=== PATIENT | male | born 1990 | race African-American/Black ===

== ENCOUNTER 2016-12-30 00:38 | Emergency (ER) | payer SELFPAY ==
[~2016-12-30] VITALS: Ht 180.3 cm; Wt 73.0 kg
[2016-12-30 03:40] LABS: BASOPHILS % 0.6 % (0.0-2.0); EOSINOPHILS % 1.4 % (0.0-5.0); HEMOGLOBIN. 13.1 g/dL (14.0-18.0); LYMPHOCYTES % 38.4 % (20.0-50.0); MEAN CORPUSCULAR HEMOGLOBIN 32.3 pg (28.0-32.0); MEAN CORPUSCULAR VOLUME 93.5 fL (80.0-94.0); MEAN PLATELET VOLUME 8.6 fl (7.4-10.4); MONOCYTES % 8.1 % (2.0-8.0); NEUTROPHILS % 51.5 % (40.0-76.0); PLATELET 185 x1000/uL (130-400); RED BLOOD CELL COUNT 4.06 mill/uL (4.7-6.1); RED CELL DISTRIBUTION WIDTH 13.2 % (11.6-14.6)
[2016-12-30 03:55] LABS: CARBON DIOXIDE 31 mEq/L (21-32); CHLORIDE 104 mEq/L (98-107)
[2016-12-30 10:50] VITALS: BP 117/81
[2016-12-30] MEDS ORDERED: EZ-HD(BARIUM SULFATE 135ML BTL) PO ONE (12:36)
== END 2016-12-30 13:19 | disposition home or self-care (01) ==
LOC: ER 00:38
DX: R55 Syncope and collapse (principal); J45.909 Unspecified asthma, uncomplicated; F17.290 Nicotine dependence, other tobacco product, uncomplicated
CPT/HCPCS: 36415; 74220; 80053; 85025; 99285; Z7610

== ENCOUNTER 2017-03-22 04:03 | Emergency (ER) | payer OTHER ==
[~2017-03-22] VITALS: Ht 170.2 cm; Wt 68.0 kg
[2017-03-22] MEDS ORDERED: HYDROCODONE/APAP 7.5/325MG 1 TAB TABLET PO ONE (07:45)
[2017-03-22 10:12] VITALS: BP 106/69
== END 2017-03-22 10:32 | disposition home or self-care (01) ==
LOC: ER 04:03
DX: S90.31XA Contusion of right foot, initial encounter (principal); S80.12XA Contusion of left lower leg, initial encounter; W22.8XXA Striking against or struck by other objects, initial encounter; Y93.89 Activity, other specified; Y92.89 Other specified places as the place of occurrence of the external cause
CPT/HCPCS: 73590; 73630; 99284; Z7610

== ENCOUNTER 2017-04-08 02:09 | Emergency (ER) | payer MEDICAID ==
[~2017-04-08] VITALS: Ht 175.3 cm; Wt 80.0 kg
[2017-04-08] MEDS ORDERED: HYDROCODONE/ACETAMINOPHEN 5/325MG TABLET PO SCH ×2 (05:30→07:00)
[2017-04-08] MEDS ORDERED: ONDANSETRON HCL 4MG/2ML VIAL IV PRN (05:30)
[2017-04-08] MEDS ORDERED: HYDROCODONE/ACETAMINOPHEN 5/325MG TABLET ONE ×2 (05:37→07:18)
[2017-04-08] MEDS ORDERED: ONDANSETRON HCL 4MG TABLET ONE (05:38)
[2017-04-08] MEDS ORDERED: LIDOCAINE HCL 2%/EPINEPHRINE/PF 10 ML VIAL INJ SCH (06:00)
[2017-04-08] MEDS ORDERED: BACITRACIN ZINC OINT UDPKT TOP SCH (06:00)
[2017-04-08] MEDS ORDERED: LIDOCAINE HCL 2% JELLY 5ML ONE (08:32)
[2017-04-08] MEDS ORDERED: TETANUS, DIPHTHERIA, PERTUSSIS VAC/PF 0.5ML (>7YR OLD) IM ONE (10:00)
== END 2017-04-08 14:03 | disposition home or self-care (01) ==
LOC: ER 02:09
DX: S01.312A Laceration without foreign body of left ear, initial encounter (principal); S00.33XA Contusion of nose, initial encounter; Y08.09XA Assault by strike by other specified type of sport equipment, initial encounter; Y93.89 Activity, other specified; Y92.89 Other specified places as the place of occurrence of the external cause; Y99.8 Other external cause status
CPT/HCPCS: 12013; 70450; 70486; 72125; 99285; J3490; Q0162; 99284

== ENCOUNTER 2017-04-17 17:42 | Emergency (ER) | payer MEDICAID ==
[~2017-04-17] VITALS: Ht 172.7 cm; Wt 73.0 kg
[2017-04-17 19:23] LABS: BASOPHILS % 0.6 % (0.0-2.0); EOSINOPHILS % 1.6 % (0.0-5.0); HEMATOCRIT. 40.4 % (42.0-52.0); HEMOGLOBIN. 13.8 g/dL (14.0-18.0); MEAN CORPUSCULAR HEMOGLOBIN 32.4 pg (28.0-32.0); MEAN CORPUSCULAR VOLUME 94.8 fL (80.0-94.0); MEAN PLATELET VOLUME 8.5 fl (7.4-10.4); MONOCYTES % 9.1 % (2.0-8.0); NEUTROPHILS % 46.7 % (40.0-76.0); PLATELET 197 x1000/uL (130-400); RED BLOOD CELL COUNT 4.26 mill/uL (4.7-6.1); RED CELL DISTRIBUTION WIDTH 13.5 % (11.6-14.6)
[2017-04-17 19:41] LABS: CARBON DIOXIDE 29 mEq/L (21-32); CHLORIDE 109 mEq/L (98-107); ETHANOL BLOOD < 10 mg/dL
[2017-04-17 20:12] LABS: CLARITY URINE CLOUDY (CLEAR); COLOR URINE YELLOW (YELLOW); GLUCOSE URINE NEGATIVE (NEGATIVE); KETONES URINE NEGATIVE (NEGATIVE); LEUKOCYTE ESTERASE URINE NEGATIVE (NEGATIVE); NITRITE URINE NEGATIVE (NEGATIVE); OCCULT BLOOD URINE NEGATIVE (NEGATIVE); PROTEIN URINE NEGATIVE (NEGATIVE); SPECIFIC GRAVITY URINE 1.022 (1.005-1.030)
[2017-04-17 20:22] LABS: *AMPHETAMINES SCREEN URINE PRESUMTIVE POSITIVE (NEGATIVE); *BARBITURATES SCREEN URINE NEGATIVE (NEGATIVE); *BENZODIAZEPINES SCREEN URINE NEGATIVE (NEGATIVE); *COCAINE SCREEN URINE PRESUMTIVE POSITIVE (NEGATIVE); CANNABINOID URINE SCREEN NEGATIVE (NEGATIVE); METHADONE URINE SCREEN NEGATIVE (NEGATIVE); OPIATES URINE SCREEN NEGATIVE (NEGATIVE); PHENCYCLIDINE URINE SCREEN PRESUMTIVE POSITIVE (NEGATIVE)
[2017-04-17 21:15] VITALS: BP 144/76
== END 2017-04-17 21:30 | disposition home or self-care (01) ==
LOC: ER 18:23
DX: F15.10 Other stimulant abuse, uncomplicated (principal); F14.90 Cocaine use, unspecified, uncomplicated; F16.10 Hallucinogen abuse, uncomplicated; N28.9 Disorder of kidney and ureter, unspecified; Z90.5 Acquired absence of kidney
CPT/HCPCS: 36415; 70450; 80053; 80305; 81001; 85025; 99285; G0482